=== PATIENT | female | born 2000 | race African-American/Black ===

== ENCOUNTER 2023-05-09 19:47 | Emergency (ER) | payer SELFPAY ==
[2023-05-09 19:50] VITALS: BP 134/90; PULSE 77; RESP 18; TEMP 36.3; O2SAT 99
[2023-05-09 19:55] VITALS: BP 134/90; PULSE 77; RESP 18; TEMP 36.3; O2SAT 99
[2023-05-09 20:26] LABS: Source Nasal/Nares
[2023-05-09] MEDS: Ibuprofen 600 MG TAB PO (20:28)
[2023-05-09] MEDS: Albuterol HFA 8 GM 60 PUFF INH IH (20:28)
[2023-05-09] MEDS: Inhaler, Assist Device 1 EACH MC (20:29)
[2023-05-09 20:58] LABS: COVID-19 PCR Negative (Negative)
--- NOTE | 2023-05-09 22:28 | ED.GENADUL_ITS ---
Discharge Plan Disposition Patient Disposition: Home Discharge Details Clinical Impression: Acute viral syndrome Primary Care Provider: Alena,Local ED Provider: Ashley Boyer Home Meds and New Rx's Prescriptions: No Action No Known Home Meds Discharge Instructions Instructions: Viral Syndrome (ED) Additional Instructions: increase fluids use inhaler 2 puffs every 4-6 hours as needed for shortness of breath and cough motrin and tylenol as needed for pain, body aches, sore throat honey and lemon for cough return earlier with fever, chills, worsening shortness of breath Stand Alone Forms: Work Release Medical Decision Making 23-year-old female presenting with sore throat, cough, runny nose, chest discomfort with coughing Afebrile and nontoxic, lungs clear to auscultation, uvula midline, oropharynx patent, no acute distress, vital stable No indication for chest x-ray at this time, will give albuterol, ibuprofen and Tylenol, will give 2 days off from work secondary to laryngitis No submandibular lymphadenopathy, Return precautions reviewed and patient expressed understanding COVID-negative HPI General Date/Time Provider Initiated Documentation: 05/09/23 19:59 . HPI Narrative: This 23-year-old female presents with report of runny nose, sore throat, cough. Denies any shortness of breath but has had some chest pain with coughing. Denies fever or chills. Denies any calf pain or swelling, denies exogenous hormones. Otherwise reportedly healthy. Denies tobacco use. Denies chance of . States her symptoms have been present for the past 2 days. She works as an [employer] and is reportedly traveling. Related Data Home Medications Medication Instructions Recorded Confirmed Unknown [No Known Home Meds] 05/09/23 05/09/23 Allergies Allergy/AdvReac Type Severity Reaction Status Date / Time No Known Allergies Allergy Unverified 05/09/23 20:00 General Stated Complaint: Sorethroat ANGELITO: 4 PFSH All Active Problems (Updated 05/09/23 @ 20:27 by JEREMY Roman) Acute viral syndrome (Acute) Social History Smoking/Tobacco Use Status: Never Smoking risk assessment performed?: Yes Alcohol Intake: never Substance use type: does not use Housing: house Do you feel safe at home: Yes Do you feel safe in your relationship?: Yes Additional Social history: [facility] 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 Course Vital Signs Vital signs: Vital Signs Temperature 36.3 C L 05/09/23 19:50 Pulse 77 05/09/23 19:50 Respiratory Rate 18 05/09/23 19:50 Blood Pressure 134/90 05/09/23 19:50 Pulse Oximetry 99 05/09/23 19:50 Temperature 36.3 C L 05/09/23 19:55 Temperature Source Temporal Artery Scan 05/09/23 19:55 Pulse 77 05/09/23 19:55 Respiratory Rate 18 05/09/23 19:55 Respiratory Effort Normal, Non-Labored 05/09/23 19:55 Blood Pressure 134/90 05/09/23 19:55 Pulse Oximetry 99 05/09/23 19:55 Oxygen Delivery Method Room Air 05/09/23 19:55 Oxygen Flow Rate 0 05/09/23 19:50 Lab/Test Results Lab/Test Results: Laboratory Tests Range/Units 05/09/23 20:20 COVID-19 Source Nasal/Nares SARS-CoV-2 (PCR) (Negative) Negative
== END 2023-05-09 20:34 | disposition home or self-care (01) ==
PROVIDERS: Emergency Provider Physician Assistant
DX: R05.9 Cough, unspecified (principal); J02.9 Acute pharyngitis, unspecified; B34.9 Viral infection, unspecified
CPT/HCPCS: 87426; 87635; 94640; 99283